=== PATIENT | female | born 1940 | race Caucasian/White ===

== ENCOUNTER 2017-12-07 09:48 | Outpatient (CLI) | payer OTHER | END 2017-12-07 09:51 | disposition home or self-care (01) | LOC: SONOGRAMA 09:48 | DX: E04.1 Nontoxic single thyroid nodule (principal) ==

== ENCOUNTER 2020-12-06 10:19 | Outpatient (CLI) | payer OTHER | END 2020-12-06 15:07 | disposition home or self-care (01) | LOC: SONOGRAMA 10:19 | PROVIDERS: ATTEND Pathology Anatomic Pathology & Clinical Pathology | DX: D34 Benign neoplasm of thyroid gland (principal); E04.8 Other specified nontoxic goiter ==

== ENCOUNTER 2021-11-12 07:15 | Outpatient (CLI) | payer OTHER | END 2021-11-12 07:16 | disposition home or self-care (01) | LOC: NUCLEAR 07:15 | PROVIDERS: ATTEND Psychiatry & Neurology Neurology | DX: G30.8 Other Alzheimer's disease (principal) | CPT/HCPCS: 78814; A9552 ==

== ENCOUNTER 2022-09-24 06:31 | Day surgery (SDC) | payer OTHER ==
[~2022-09-24] VITALS: Ht 149.9 cm; Wt 62.6 kg
[~2022-09-24 06:31] MED LIST: LIPITOR20 MG PO; VALSARTAN160 MG PO
== END 2022-09-24 11:25 | disposition home or self-care (01) ==
LOC: CIR.AMB 06:31
PROVIDERS: ATTEND Surgery Surgery of the Hand
DX: M18.12 Unilateral primary osteoarthritis of first carpometacarpal joint, left hand (principal); D68.9 Coagulation defect, unspecified; Z20.822 Contact with and (suspected) exposure to COVID-19; Z88.6 Allergy status to analgesic agent
CPT/HCPCS: 25332; L8699

== ENCOUNTER 2023-11-25 06:40 | Day surgery (SDC) | payer OTHER ==
[~2023-11-25] VITALS: Ht 149.9 cm; Wt 63.0 kg
[2023-11-25] MEDS ORDERED: CEFAZOLIN SODIUM 1,000 MG VIAL ONE (12:25)
[2023-11-25] MEDS ORDERED: TRIAMCINOLONE ACETONIDE 40 MG/ML VIAL ONE (12:51)
== END 2023-11-25 16:35 | disposition home or self-care (01) ==
LOC: CIR.AMB 06:40
PROVIDERS: ATTEND Surgery Surgery of the Hand
DX: M19.031 Primary osteoarthritis, right wrist (principal); Z88.6 Allergy status to analgesic agent